=== PATIENT | female | born 1985 | race Caucasian/White ===

== ENCOUNTER 2021-08-02 16:42 | Emergency (ER) | payer MEDICAID, SELFPAY ==
[2021-08-02 17:00] VITALS: BP 117/61; PULSE 88; RESP 17; TEMP 36.6; O2SAT 98; BMI 22.3
--- NOTE | 2021-08-02 17:24 | ED.URI ---
HPI - URI/Sore Throat General Chief Complaint: Upper Respiratory Symptoms Stated Complaint: covid + Time Seen by Provider: 08/02/21 17:20 Source: patient Mode of arrival: ambulatory Limitations: no limitations History of Present Illness HPI Narrative: 35 yo female previously healthy here with complaints of body aches, cough, nausea/vomiting since Sunday. No diarrhea, abdominal pain, fevers, chills. Tested Sunday for COVID and found out Sunday COVID +. Here because she is unable to tolerate PO. Related Data Previous Rx's Medication Instructions Recorded ondansetron 4 mg disintegrating 4 mg PO Q6H PRN #10 tab 08/02/21 tablet Allergies Allergy/AdvReac Type Severity Reaction Status Date / Time tramadol [TRAMADOL] AdvReac Unknown VOMITING Verified 08/02/21 19:25 Review of Systems Review of Systems: Yes all other systems are reviewed and are negative Constitutional: Constitutional: Reports no additional constitutional complaints, Reports body ache(s), Denies chills, Denies fever(s), Denies headache(s) and Reports weakness Eyes: Eyes: Reports no additional eye complaints and Denies change in vision ENT: Reports system reviewed and no additional complaints, except as documented, Denies dizziness, Denies headache(s), Denies nasal congestion, Denies nasal discharge and Denies neck pain Cardiovascular: Cardiovascular: Reports no additional cardiovascular complaints, Denies chest pain, Denies leg edema and Denies dyspnea Respiratory: Respiratory: Reports no additional respiratory complaints, Reports cough and Denies dyspnea Gastrointestinal: Gastrointestinal: Reports no additional gastrointestinal complaints, Denies abdominal pain, Denies diarrhea, Reports nausea and Reports vomiting Genitourinary: Genitourinary: Reports no additional female genitourinary complaints and Denies urinary incontinence Musculoskeletal: Musculoskeletal: Reports no additional musculoskeletal complaints, Denies back pain, Denies arthralgias, Denies joint swelling, Denies neck pain, Denies numbness and Denies tingling Integumentary/Breasts: Skin/Breast: Reports system reviewed and no additional complaints, except as docu and Denies rash Neurologic: Reports system reviewed and no additional complaints, except as documented, Denies Abnormal speech present, Denies dizziness, Denies headache(s), Denies numbness, Denies tingling and Reports weakness PMFSH Past Medical History Attestation statement: The following information was validated with the patient. Source: old records reviewed and nursing notes reviewed Medical History COVID-19 Social History Social History Alcohol intake: never Patient Tobacco Use Status: Never used Tobacco Use of substances other than those prescribed or required for medical reasons: No Advance Directives: No Advance Directives Information Provided: No Patient : No Physical Exam Vital Signs: Vital Signs: Last Vital Signs Temp 98 F 08/02/21 17:00 Pulse 88 08/02/21 17:00 Resp 17 08/02/21 17:00 BP 117/61 08/02/21 17:00 Pulse Ox 98 08/02/21 17:00 Body Mass Index 22.3 Const: General: cooperative, healthy appearing, comfortable and no acute distress Orientation/consciousness: patient oriented x3 Limitations: no limitations HENMT: Head: Yes normal to inspection Ears: hearing grossly normal bilaterally and TM's normal bilaterally General nose exam: Normal external nose present Face and sinus: Yes normal facial exam Mouth: Normal oral and palatal mucosa present Throat: Yes posterior oropharynx normal, Yes tonsils normal and Yes uvula midline Eyes: General: appearance normal, both eyes and all related structures Pupils: Equal, round and reactive pupils present Neck: Neck: Yes normal visual inspection, Yes full ROM, Yes no lymphadenopathy and Yes no meningeal signs Chest: Chest palpation & inspection: normal inspection of the chest Resp: Effort & Inspection: normal respiratory effort Auscultation: clear to auscultation bilaterally Cardio: Rate: regular rate Rhythm: regular rhythm Peripheral pulses: Peripheral pulses 2+ throughout GI: Inspection: Yes normal to inspection Palpation (GI): Soft to palpation and nontender Auscultation: normal bowel sounds Back/Spine/Pelvis: Thoracic/Lumbar Spine: thoracic and lumbar spine normal to inspection Skin: General skin exam: no rashes or lesions noted Neuro: General: patient oriented x3, no meningeal signs, no focal motor deficits and normal sensation to monofilament Cranial nerves: Yes Equal, round and reactive pupils present Cognition (Neuro): normal cognition Speech: No Abnormal speech present Gait exam (Neuro): Normal gait present Motor exam (neuro): 5/5 motor strength present throughout Extrem: General: Yes normal to inspection, Yes no pedal edema and Yes no calf tenderness Course Course Course Narrative: 35 yo female COVID + here with intractable vomiting unable to tolertate PO. No abdominal pain. Will check labs, provide NSB and antiemetic. 1950-labs are unremarkable. Patient is now tolerating p.o.. Feeling improved. Will discharge home. Reviewed worrisome signs and symptoms of when to return to the emergency department. Comfortable discharge home. MDM - URI/Sore Throat Medical Records Attestation: I reviewed the patient's medical records. Lab Data Attestation: I reviewed the patient's lab results. Result diagrams: 08/02/21 19:06 08/02/21 19:06 Labs: Lab Results 08/02/21 08/02/21 Range/Units 19:06 19:06 WBC 5.8 (4.8-10.8) X10*3/uL RBC 5.28 (4.20-5.50) X10*6/uL Hgb 16.5 H (12.0-16.0) g/dl Hct 46.6 (37-47) % MCV 88.3 (80-98) fL MCH 31.3 (27.0-33.0) pg MCHC 35.4 H (31.0-35.0) g/dl RDW 12.7 (11.0-16.0) % Plt Count 214 (160-400) X10*3/uL MPV 9.6 (9.4-12.3) fL Immature Gran % (Auto) 0.2 (0.0-0.4) % Neut % (Auto) 64.4 (45-73) % Lymph % (Auto) 21.4 (20-40) % [place] % (Auto) 13.5 H (2-11) % Eos % (Auto) 0.2 (0-4) % Baso % (Auto) 0.3 (0-2) % Lymph # (Auto) 1.2 (1.2-4.9) X10*3/uL [place] # (Auto) 0.8 (0.1-1.2) X10*3/uL Eos # (Auto) 0.0 (0.0-0.4) X10*3/uL Baso # (Auto) 0.0 (0.0-0.2) X10*3/uL Abs Immat Gran (auto) 0.01 (0.00-0.03) X10*3/uL Absolute Neuts (auto) 3.7 (2.0-8.3) X10*3/uL Absolute Nucleated RBC 0.000 (0.0-0.012) X10*3/uL Nucleated RBC % (auto) 0.0 (0.0-0.2) /100WBC Sodium 138 (135-145) mmol/L Potassium 3.8 (3.3-5.1) mmol/L Chloride 103 (96-108) mmol/L Carbon Dioxide 23 (22-29) mmol/L Anion Gap 16 (12-20) BUN 13 (9-16) mg/dL Creatinine 0.70 (0.5-1.4) mg/dL Estim Creat Clear Calc 91.9 Estimated GFR > 60 Random Glucose 94 (60-115) mg/dL Calcium 9.4 (8.4-10.2) mg/dL Total Bilirubin 0.3 (0.0-1.0) mg/dL Direct Bilirubin 0.2 (0.0-0.5) mg/dL AST 24 (5-31) U/L ALT 17 (0-31) U/L Alkaline Phosphatase 44 (39-117) U/L Total Protein 7.8 (6.5-8.0) g/dL Albumin 4.7 (3.5-5.0) g/dL Discharge Plan Discharge Clinical Impression: COVID-19, Vomiting Patient Disposition: Home, Self-Care Instructions: Acute Nausea and Vomiting (ED), COVID-19 (Coronavirus Disease 2019) (ED) Additional Instructions: Start with clear liquids and advance diet as tolerated Continue your quarantine Motrin or Tylenol as needed for pain or fever Prescriptions: New ondansetron 4 mg tablet,disintegrating 4 mg PO Q6H PRN (Reason: nausea and vomiting) Qty: 10 RF: 0 Referrals: Physician,None [Primary Care Provider] - 2 days Interventions: ED Discharge Assessment Last Done: 08/02/21 19:52 Discharge Date/Time: 08/02/21 19:58
[2021-08-02 19:21] LABS: MANUAL DIFF FLAG NO
[2021-08-02 19:23] LABS: Basophils Percent Auto 0.3 % (0-2); Eosinophils Percent Auto 0.2 % (0-4); Hematocrit 46.6 % (37-47); Hemoglobin 16.5 g/dl (12.0-16.0); Imm Gran Abs Auto 0.01 X10*3/uL (0.00-0.03); Imm Gran Pct Auto 0.2 % (0.0-0.4); Lymphocytes Absolute Auto 1.2 X10*3/uL (1.2-4.9); Lymphocytes Percent Auto 21.4 % (20-40); Mean Corpuscular HGB Conc 35.4 g/dl (31.0-35.0); Mean Corpuscular Hemoglobin 31.3 pg (27.0-33.0); Mean Corpuscular Volume 88.3 fL (80-98); Mean Platelet Volume 9.6 fL (9.4-12.3); Monocytes Absolute Auto 0.8 X10*3/uL (0.1-1.2); Monocytes Percent Auto 13.5 % (2-11); Neutrophils Absolute Auto 3.7 X10*3/uL (2.0-8.3); Neutrophils Percent Auto 64.4 % (45-73); Platelet Count 214 X10*3/uL (160-400); Red Blood Count 5.28 X10*6/uL (4.20-5.50); Red Cell Distribution Width 12.7 % (11.0-16.0); White Blood Count 5.8 X10*3/uL (4.8-10.8)
[2021-08-02] MEDS: 0.9 % Sodium Chloride 1,000 ML 999 ML IV (19:26)
[2021-08-02] MEDS: ondansetron HCL 4 MG/2 ML VIAL IVPUSH (19:27)
[2021-08-02 19:39] LABS: Alanine Aminotransferase 17 U/L (0-31); Albumin Level 4.7 g/dL (3.5-5.0); Alkaline Phosphatase 44 U/L (39-117); Anion Gap 16 (12-20); Aspartate Amino Transferase 24 U/L (5-31); Bilirubin Direct 0.2 mg/dL (0.0-0.5); Bilirubin Total 0.3 mg/dL (0.0-1.0); Blood Urea Nitrogen 13 mg/dL (9-16); Calcium 9.4 mg/dL (8.4-10.2); Carbon Dioxide 23 mmol/L (22-29); Chloride 103 mmol/L (96-108); Creatinine Clr Calc Pharmacy 91.9; Estimated Glomerular Filt Rate > 60; Glucose Random 94 mg/dL (60-115); Potassium 3.8 mmol/L (3.3-5.1); Sodium 138 mmol/L (135-145); Total Protein 7.8 g/dL (6.5-8.0)
== END 2021-08-02 19:58 | disposition home or self-care (01) ==
PROVIDERS: Nurse Practitioner Family; Emergency Provider Emergency Medicine
DX: U07.1 COVID-19 (principal); R11.10 Vomiting, unspecified
CPT/HCPCS: 36415; 80048; 80076; 85025; 96361; 96374; 99284; J2405

== ENCOUNTER → 2021-12-26 09:56 | Outpatient (BNVA) | payer SELFPAY | PROVIDERS: Visit Provider Physician Assistant Medical | DX: Z02.1 Encounter for pre-employment examination (principal) ==

== ENCOUNTER → 2022-01-18 08:30 | Outpatient (BNVA) | payer SELFPAY | DX: Z11.1 Encounter for screening for respiratory tuberculosis (principal) ==

== ENCOUNTER → 2022-02-08 10:06 | Outpatient (BNVA) | payer SELFPAY | DX: Z02.1 Encounter for pre-employment examination (principal) ==